=== PATIENT | female | born 1985 | race Caucasian/White ===

== ENCOUNTER 2016-10-03 09:37 | Observation (INO) | payer MEDICAID | END 2016-10-03 10:30 | disposition home or self-care (01) | LOC: FLD 09:37 | PROVIDERS: ADMIT Obstetrics & Gynecology; ATTEND Obstetrics & Gynecology | DX: Z03.79 Encounter for other suspected maternal and fetal conditions ruled out (principal); Z3A.00 Weeks of gestation of pregnancy not specified | CPT/HCPCS: G0378 ==

== ENCOUNTER 2016-10-03 14:07 | Observation (INO) | payer MEDICAID ==
[2016-10-03] MEDS ORDERED: LIDOCAINE 1% 30 ML SDV ONE (14:55)
[2016-10-03] MEDS ORDERED: OXYTOCIN 10 UNIT/ML VIAL ONE (14:56)
[2016-10-03] MEDS ORDERED: AMMONIA AROMATIC 1 EACH AMP IH ONE (14:56)
[2016-10-03] MEDS ORDERED: TERBUTALINE SULFATE 1 MG/ML VIAL ONE (14:56)
[2016-10-03] MEDS ORDERED: MISOPROSTOL 200 MCG TAB ONE (14:56)
[2016-10-03 17:42] LABS: ABSOLUTE IMMATURE GRANULOCYTES 0.11 10^3/uL (0.00-0.10); ADD DIFF? NO; ADD MORPH? NO; ADD SCAN? NO; ATYPICAL LYMPHOCYTE FLAG 0 (0-99); FRAGMENT RBC FLAG 0 (0-99); HEMATOCRIT 38.7 % (38.0-47.0); HEMOGLOBIN 13.3 g/dL (12.6-16.3); LEFT SHIFT FLG 10 (0-99); LIPEMIA HEMOLYSIS FLAG 90 (0-99); MEAN CELL HEMOGLOBIN CONCENTR. 34.4 g/dL (32.4-36.7); MEAN CELL VOLUME 93.3 fL (81.5-99.8); MEAN PLATELET VOLUME 11.2 fL (8.7-11.7); PLATELET CLUMPS FLAG 10 (0-99); PLATELET COUNT 120 10^3/uL (150-400); RED BLOOD CELL COUNT 4.15 10^6/uL (4.18-5.33); RED CELL DISTRIBUTION WIDTH 12.8 % (11.5-15.2)
[2016-10-03 18:35] LABS: COLOR YELLOW; LEUKOCYTE ESTERASE,URINE NEGATIVE (NEGATIVE); NITRITE,URINE NEGATIVE (NEGATIVE)
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
[2016-10-03] MEDS ORDERED: ONDANSETRON 4 MG/2 ML VIAL IVP PRN (21:45)
[2016-10-03] MEDS ORDERED: ACETAMINOPHEN 500 MG TAB PO PRN (21:45)
[2016-10-03] MEDS ORDERED: ZOLPIDEM TARTRATE 5 MG TAB PO PRN (21:45)
[2016-10-03] MEDS ORDERED: LR 1,000 ML IV SCH (21:45)
--- NOTE | 2016-10-04 10:32 | OBPROG ---
OBG Progress Note Assessment/Plan: Assessment: cat 1 fhr pain at a 0 cva tenderness resolved feeling positive movement denies leaking bleeding or cramping consult with dr. saw singh this am on poc Plan:discharge to home with instructions fu on thursday has appt scheduled fu with mark anthony hutchins on thursday. patient and family in agreement with poc. Discussed need to continue to hydrate and reasons to return to labor and delivery 10/04/16 10:29 Subjective: Feeling so much better today. Pain at a 0. Feeling better after passing x 3 kidney stones. Objective: 10/03/16 17:20 Patient ABO/Rh O POSITIVE 10/03/16 17:20 - Physical Exam General Appearance: WD/WN, alert, no apparent distress Respiratory: chest non-tender, lungs clear, normal breath sounds Cardiac/Chest: regular rate, rhythm Abdomen: normal bowel sounds Membranes: Intact DTR- Lower Extremities: Knee (R): 1+, Knee (L): 1+ Skin: normal color, warm/dry Neuro/Psych: no motor/sensory deficits, alert, normal mood/affect, oriented x 3 ICD10 Worksheet Patient Problems: Problems Problem Status Onset Vaginal after () Acute
== END 2016-10-04 11:15 | disposition home or self-care (01) ==
LOC: FLD 14:07 → INTOOBSV 14:07
PROVIDERS: ADMIT Obstetrics & Gynecology; ATTEND Obstetrics & Gynecology
DX: O26.833 Pregnancy related renal disease, third trimester (principal); N20.0 Calculus of kidney; O34.219 Maternal care for unspecified type scar from previous cesarean delivery; Z3A.38 38 weeks gestation of pregnancy
CPT/HCPCS: 76770; G0378; J3105

== ENCOUNTER 2016-10-08 23:20 | Inpatient (IN) | payer MEDICAID ==
[2016-10-09] MEDS ORDERED: OXYTOCIN/RINGERS LACTATE 1,000 ML IV PRN (01:10)
[2016-10-09] MEDS ORDERED: TERBUTALINE SULFATE 1 MG/ML VIAL IV PRN (01:10)
[2016-10-09] MEDS ORDERED: LR 1,000 ML IV PRN (01:10)
[2016-10-09] MEDS ORDERED: TERBUTALINE SULFATE 1 MG/ML VIAL ONE (01:17)
[2016-10-09] MEDS ORDERED: LIDOCAINE 1% 30 ML SDV ONE (01:17)
[2016-10-09] MEDS ORDERED: AMMONIA AROMATIC 1 EACH AMP IH ONE (01:17)
[2016-10-09] MEDS ORDERED: MISOPROSTOL 200 MCG TAB ONE (01:18)
[2016-10-09] MEDS ORDERED: OXYTOCIN/RINGERS LACTATE 20 UNIT/1,000 ML BAG IV ONE (01:19)
[2016-10-09 01:38] LABS: % IMMATURE GRANULYOCYTES 2.1 % (0.0-1.1); ADD DIFF? NO; ADD MORPH? NO; ADD SCAN? NO; ATYPICAL LYMPHOCYTE FLAG 0 (0-99); FRAGMENT RBC FLAG 0 (0-99); HEMATOCRIT 38.5 % (38.0-47.0); HEMOGLOBIN 13.6 g/dL (12.6-16.3); LEFT SHIFT FLG 10 (0-99); LIPEMIA HEMOLYSIS FLAG 90 (0-99); MEAN CELL HEMOGLOBIN 32.9 pg (27.9-34.1); MEAN CELL HEMOGLOBIN CONCENTR. 35.3 g/dL (32.4-36.7); MEAN CELL VOLUME 93.2 fL (81.5-99.8); MEAN PLATELET VOLUME 11.1 fL (8.7-11.7); PLATELET CLUMPS FLAG 0 (0-99); PLATELET COUNT 128 10^3/uL (150-400); RED BLOOD CELL COUNT 4.13 10^6/uL (4.18-5.33); RED CELL DISTRIBUTION WIDTH 12.8 % (11.5-15.2)
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
[2016-10-09] MEDS ORDERED: LR 500 ML IV PRN (09:01)
--- NOTE | 2016-10-09 09:01 | OBPROG ---
OBG Progress Note Assessment/Plan: Assessment: Plan: Subjective: contractions have spaced out. sve 890/-2. AROM. small amount of clear fluid. discussed management options with patient and her . will start pitocin and continue to watch patient closely. Objective: 10/09/16 01:25 Patient ABO/Rh O POSITIVE 10/09/16 01:25 - SVE Dilation (cm): 8 Effacement (%): 90 Station: +1 Current Contraction Pattern: Irregular FHR Pattern Variability: Moderate FHR Category: 1 Membranes: AROM Amniotic Fluid Color: Clear ICD10 Worksheet Patient Problems: Problems Problem Status Onset Kidney stone complicating Acute Vaginal after () Acute
[2016-10-09] MEDS ORDERED: OXYTOCIN/RINGERS LACTATE 500 ML IV SCH (09:30)
[2016-10-09] MEDS ORDERED: fentaNYL 2MCG/ML/BUP 0.1% RTU 100 ML BAG EP ONE (10:25)
[2016-10-09] MEDS ORDERED: PHENYLEPHRINE HCL 100 MCG/ML SYR ONE (10:25)
[2016-10-09] MEDS ORDERED: BUPIVACAINE 0.25% 30 ML SDV ONE (10:25)
[2016-10-09] MEDS ORDERED: fentaNYL 100 MCG/2 ML INJ ONE (10:26)
--- NOTE | 2016-10-09 10:34 | OBPROG ---
OBG Progress Note Assessment/Plan: Assessment: Plan: Subjective: patient much more uncomfortable with contractions. feeling pressure but "not able to focus to push". attempted pushing but still has anterior lip and patient is not moving the baby well. discussed management options including laboring down, epidural and c section because of hx of prior c section. status is reassuring. patient desires to get epidural. will get epidural and labor down. will continue to monitor closely. abdomen is soft and non tender between contractions. Objective: 10/09/16 01:25 Patient ABO/Rh O POSITIVE 10/09/16 01:25 - SVE Dilation (cm): 9 Effacement (%): 100 Station: +1 Current Contraction Pattern: Regular FHR Pattern Variability: Moderate FHR Category: 2 Membranes: AROM Amniotic Fluid Color: Clear ICD10 Worksheet Patient Problems: Problems Problem Status Onset Kidney stone complicating Acute Vaginal after () Acute
[2016-10-09] MEDS ORDERED: SIMETHICONE 80 MG TAB CHEW PO PRN (11:08)
[2016-10-09] MEDS ORDERED: ACETAMINOPHEN 325 MG TAB PO PRN (11:08)
[2016-10-09] MEDS ORDERED: DOCUSATE SODIUM 100 MG CAP PO PRN (11:08)
[2016-10-09] MEDS ORDERED: HYDROCODONE/APAP 5/325 TAB PO PRN (11:08)
[2016-10-09] MEDS ORDERED: HYDROCORTISONE 0.5% CREAM TP PRN (11:08)
--- NOTE | 2016-10-09 11:08 | OBPROC ---
- Labor and Delivery Onset of Contractions Date: 10/08/16 Onset of Contractions Type: Augmented Rupture of Membranes Date: 10/09/16 Rupture of Membranes Time: 08:50 Rupture of Membranes Type: Artificial Amniotic Fluid Color: Clear Dilation Complete Time: 10:40 Delivery Type: Spontaneous Placenta Delivery Date: 10/09/16 Placenta Delivery Time: 10:49 Episiotomy/Laceration: 1st Degree Repair: 3-0 Complications: Other (Specify) (nuchal arm) - Medications Labor Augmentation/Induction Meds Used: Pitocin Labor Augmentation/Induction Indication: Advance Dilation - Info Infant A Delivery Date: 10/09/16 Delivery Time: 10:46 Sex of : Male Score (1 Min): 8 Score (5 Min): 9
[2016-10-09] MEDS: IBUPROFEN 600 MG TAB PO PRN (19:19)
--- NOTE | 2016-10-10 08:27 | SOAPPROG ---
SOAP Progress Note Assessment/Plan: Assessment: PPD 1 s/p clot with trailing membrane yesterday - since then bld normal Plan: routine care 10/10/16 08:24 Subjective: Pt doing well. Bld is normal -no clots since yesterday. BF well. mod cramps. urinating fine. no nausea Objective: Vital Signs Temp Pulse Resp BP Pulse Ox 36.4 C 86 18 118/72 10/09/16 16:20 10/09/16 16:20 10/09/16 16:20 10/09/16 16:20 Laboratory Results 10/09/16 01:25 10/09/16 10/10/16 10/11/16 05:59 05:59 05:59 Output Total 400 Balance -400 Physical Exam - Physical Exam General Appearance: WD/WN Abdomen: non-tender, soft, other (FF at umb -1) Pelvic Exam: vaginal bleeding (normal lochia) Extremities: non-tender, pedal edema (normal) Neuro/Psych: normal mood/affect ICD10 Worksheet Patient Problems: Problems Problem Status Onset Vaginal after () Acute
[2016-10-10] MEDS ORDERED: EPSOM SALT 454 GM TP ONE (10:30)
[2016-10-10 19:13] VITALS: PULSE 76
[2016-10-11] MEDS: IBUPROFEN 600 MG TAB PO PRN (00:33)
--- NOTE | 2016-10-11 07:29 | SOAPPROG ---
SOAP Progress Note Assessment/Plan: Assessment: PPD 2 s/p clot with trailing membrane yesterday - since then bld normal Plan: routine care, D/C home 10/10/16 08:24 10/11/16 07:25 Subjective: Pt doing fine. BF well. Didn't sleep at all from cluster feeding last noc. Bld is light. Had small clot last noc. urinating fine. Frustrated that they just heard they don't have the home they thought they were moving to in mid- october. Will still be staying at friends. Objective: Vital Signs Temp Pulse Resp BP Pulse Ox 36.8 C 76 17 136/89 H 10/10/16 19:12 10/10/16 19:12 10/10/16 19:12 10/10/16 19:12 Laboratory Results 10/09/16 01:25 10/10/16 10/11/16 10/12/16 05:59 05:59 05:59 Output Total 400 Balance -400 Physical Exam - Physical Exam General Appearance: WD/WN Abdomen: non-tender, soft, other (FF at umb -1) Pelvic Exam: vaginal bleeding (normal lochia) Extremities: non-tender, pedal edema (minimal) Neuro/Psych: normal mood/affect ICD10 Worksheet Patient Problems: Problems Problem Status Onset Vaginal after () Acute
[2016-10-11 11:28] VITALS: BP 143/76; RESP 16; TEMP 97.9
== END 2016-10-11 16:25 | disposition home or self-care (01) | DRG 775 ==
LOC: FLD 23:20 → OBSVTOIN 10-09 01:00
PROVIDERS: ADMIT Obstetrics & Gynecology; ATTEND Obstetrics & Gynecology
PROC: 10907ZC Drainage of Amniotic Fluid, Therapeutic from Products of Conception, Via Natural or Artificial Opening (ICD-10-PCS; principal; 2016-10-09)
PROC: 0HQ9XZZ Repair Perineum Skin, External Approach (ICD-10-PCS; principal; 2016-10-09)
PROC: 10E0XZZ Delivery of Products of Conception, External Approach (ICD-10-PCS; principal; 2016-10-09)
DX: O62.4 Hypertonic, incoordinate, and prolonged uterine contractions (principal); O70.0 First degree perineal laceration during delivery; O69.81X0 Labor and delivery complicated by cord around neck, without compression, not applicable or unspecified; O34.219 Maternal care for unspecified type scar from previous cesarean delivery; Z87.442 Personal history of urinary calculi; Z3A.39 39 weeks gestation of pregnancy; Z37.0 Single live birth
CPT/HCPCS: J2370; J2590; J3010; J3105

== ENCOUNTER 2017-05-04 19:13 | Emergency (ER) | payer MEDICAID ==
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
[2017-05-04 20:13] LABS: % IMMATURE GRANULYOCYTES 0.4 % (0.0-1.1); ABSOLUTE IMMATURE GRANULOCYTES 0.03 10^3/uL (0.00-0.10); ADD DIFF? NO; ADD MORPH? NO; ADD SCAN? NO; ATYPICAL LYMPHOCYTE FLAG 0 (0-99); FRAGMENT RBC FLAG 0 (0-99); HEMATOCRIT 38.3 % (38.0-47.0); HEMOGLOBIN 13.2 g/dL (12.6-16.3); LEFT SHIFT FLG 0 (0-99); LIPEMIA HEMOLYSIS FLAG 90 (0-99); MEAN CELL HEMOGLOBIN 31.3 pg (27.9-34.1); MEAN CELL HEMOGLOBIN CONCENTR. 34.5 g/dL (32.4-36.7); MEAN CELL VOLUME 90.8 fL (81.5-99.8); MEAN PLATELET VOLUME 11.6 fL (8.7-11.7); PLATELET CLUMPS FLAG 0 (0-99); PLATELET COUNT 194 10^3/uL (150-400); RED BLOOD CELL COUNT 4.22 10^6/uL (4.18-5.33); RED CELL DISTRIBUTION WIDTH 12.4 % (11.5-15.2)
[2017-05-04 20:21] LABS: ANION GAP 13 mEq/L (8-16); CARBON DIOXIDE 21 mEq/l (22-31); CHLORIDE 104 mEq/L (97-110); CREATININE 0.6 mg/dL (0.6-1.0); ETHANOL SERUM < 10 mg/dL (0-10); GLOMERULAR FILTRATION RATE > 60; GLUCOSE 145 mg/dL (70-100); POTASSIUM 3.3 mEq/L (3.5-5.2); SODIUM 138 mEq/L (134-144)
[2017-05-05 18:49] VITALS: RESP 16
[2017-05-05] MEDS ORDERED: POTASSIUM Cl (KCl) 100 ML IV ONE (19:09)
[2017-05-05] MEDS ORDERED: POTASSIUM Cl (KCl) 50 ML IV ONE (19:09)
[2017-05-05 22:01] VITALS: BP 121/71; PULSE 66; TEMP 98.1; O2SAT 97
== END 2017-05-05 22:01 ==
LOC: EDUNIT# → EEVIPCON 19:13
DX: F23 Brief psychotic disorder (principal)
CPT/HCPCS: 80305; G0480